=== PATIENT | female | born 1930 | race Caucasian/White ===

== ENCOUNTER 2018-07-29 14:28 | Observation (INO) | payer MEDICARE, OTHER ==
[~2018-07-29] VITALS: Ht 149.9 cm; Wt 68.3 kg
[2018-07-29 15:25] LABS: BASOPHILS % (AUTO) 0.2 % (0.0-5.0); EOSINOPHILS % (AUTO) 0.3 % (0.0-8.0); LYMPHOCYTES % (AUTO) 18.5 % (21.0-51.0); MEAN CORPUSCULAR HEMOGLOBIN 28.1 pg (27.0-33.0); MEAN CORPUSCULAR HGB CONC 32.3 g/dL (32.0-36.0); MONOCYTES % (AUTO) 7.9 % (3.0-13.0); NEUTROPHILS % (AUTO) 73.1 % (40.0-77.0); PLATELET COUNT (AUTO) 293 K/uL (130-400); RED BLOOD CELL COUNT(AUTO) 4.94 MIL/uL (4.00-5.50); WHITE BLOOD COUNT (AUTO) 10.8 K/uL (4.8-10.8)
[2018-07-29 15:36] LABS: CREATININE 1.3 mg/dL (0.5-1.5); POTASSIUM 3.8 mmol/L (3.5-5.1)
[2018-07-29 15:45] LABS: ALBUMIN 3.4 g/dL (3.5-5.0); BILIRUBIN,TOTAL 0.3 mg/dL (0.2-1.0); TOTAL PROTEIN, SERUM 7.6 g/dL (6.0-8.3)
[2018-07-29] MEDS ORDERED: GLUCAGON 1MG KIT 1 MG ML ONE (16:25)
[2018-07-29] MEDS ORDERED: SODIUM CHLORIDE 0.9% 1000ML 1,000 ML IV ONE ×2 (16:25→22:04)
[2018-07-29] MEDS ORDERED: ONDANSETRON HCL 4 MG/2 ML VIAL ONE (16:25)
[2018-07-29 16:58] LABS: APPEARANCE,URINE Clear (CLEAR); BILIRUBIN,URINE Negative (NEGATIVE); COLOR,URINE Yellow (YELLOW); GLUCOSE, URINE (UA) Negative (NEGATIVE); KETONES,URINE Negative (NEGATIVE); LEUKOCYTE ESTERASE ,URINE Small (NEGATIVE); NITRATE,URINE Negative (NEGATIVE); OCCULT BLOOD,URINE Negative (NEGATIVE); PH,URINE 5.5 (5.0-8.0); PROTEIN,URINE Negative (NEGATIVE); UROBILINOGEN,URINE 0.2 mg/dL (0.2-1.0)
[2018-07-29 17:13] LABS: RBC,URINE None Seen /HPF (0-1)
[2018-07-29 17:14] LABS: BACTERIA,URINE Few /HPF (None Seen); MUCUS,URINE Few LPF (None Seen); WBC,URINE 0-1 /HPF (0-1)
[2018-07-29] MEDS ORDERED: METOCLOPRAMIDE 10 MG/2 ML VIAL ONE (22:04)
[2018-07-29 23:15] VITALS: BP 154/86
[2018-07-30] VITALS (17 sets, daily range): BP systolic 113–158; BP diastolic 54–94
[2018-07-30] MEDS ORDERED: ACET-66 PO (01:28)
[2018-07-30] MEDS ORDERED: ATOR40TA69 PO (01:29)
[2018-07-30] MEDS ORDERED: CIPR-1 PO (01:33)
[2018-07-30] MEDS ORDERED: DOCU-116 PO (01:34)
[2018-07-30] MEDS ORDERED: FOLI1TAB15 PO (01:34)
[2018-07-30] MEDS ORDERED: FURO20TA4 PO (01:35)
[2018-07-30] MEDS ORDERED: IBUP-2077 PO (01:37)
[2018-07-30] MEDS ORDERED: LEVO75 PO (01:38)
[2018-07-30] MEDS ORDERED: LOSA50TA2 PO (01:40)
[2018-07-30] MEDS ORDERED: BENZ-39 PO (01:41)
[2018-07-30] MEDS ORDERED: CHOL200074 PO (01:45)
[2018-07-30] MEDS ORDERED: POTASSIUM CHLORIDE 10% ELIXIR 20 MEQ/15 ML UDCUP PO PRN (03:30)
[2018-07-30] MEDS ORDERED: CLONIDINE HCL 0.1 MG TABLET PO PRN (03:30)
[2018-07-30] MEDS ORDERED: DiphenhydrAMINE HCL 50 MG/ML VIAL IVP PRN (03:30)
[2018-07-30] MEDS ORDERED: POTASSIUM CHLORIDE 20MEQ/100ML 100 ML IV PRN (03:30)
[2018-07-30] MEDS ORDERED: DEXTROSE 50%-WATER 50 ML DISP.SYRIN IV PRN (03:30)
[2018-07-30] MEDS ORDERED: POTASSIUM CHLORIDE 20 MEQ ERTAB PO PRN (03:30)
[2018-07-30] MEDS ORDERED: NITROGLYCERIN 0.4 MG SL TAB SL PRN (03:30)
[2018-07-30] MEDS: METOCLOPRAMIDE 10 MG/2 ML VIAL IVP SCH ×2 (03:30→14:59)
[2018-07-30] MEDS ORDERED: GUAIFENESIN SUGAR-FREE 100 MG/5 ML UDCUP PO PRN (03:30)
[2018-07-30] MEDS ORDERED: MAG HYDROX/AL HYDROX/SIMETH ES 30 ML SUSP UDCUP PO PRN (03:30)
[2018-07-30] MEDS ORDERED: ZOLPIDEM TARTRATE 5 MG TAB PO PRN (03:30)
[2018-07-30] MEDS ORDERED: ONDANSETRON HCL MDV 20ML 2 MG/ML VIAL IVP PRN (03:30)
[2018-07-30] MEDS ORDERED: ACETAMINOPHEN 325 MG TAB PO PRN ×2 (03:30)
[2018-07-30] MEDS ORDERED: DIPHENHYDRAMINE HCL 25 MG CAPSULE PO PRN (03:30)
[2018-07-30] MEDS ORDERED: GUAIFENESIN-DM 200/20 MG 10 ML PO PRN (03:30)
[2018-07-30] MEDS ORDERED: LACTULOSE 20 GM/30 ML UDCUP PO PRN (03:30)
[2018-07-30] MEDS: SODIUM CHLORIDE 0.9% 1000ML 1,000 ML IV SCH ×3 (03:30→22:30)
[2018-07-30] MEDS ORDERED: LIDOCAINE HCL-MPF 1% 2ML VIAL IJ PRN (03:30)
[2018-07-30] MEDS ORDERED: GLUCAGON 1MG KIT 1 MG ML IM PRN (03:30)
[2018-07-30] MEDS: FAMOTIDINE/PF 20 MG/2 ML VIAL IV SCH (11:06)
[2018-07-30] MEDS: AMOXICILLIN/POTASSIUM CLAV 875-125 TABLET PO SCH ×2 (14:57→22:24)
[2018-07-30] MEDS ORDERED: ACETAMINOPHEN EXTRA STRENGTH 500 MG TABLET PO SCH (17:00)
[2018-07-30] MEDS ORDERED: BENZONATATE 100 MG CAPSULE PO PRN (17:00)
[2018-07-30] MEDS ORDERED: IBUPROFEN 800 MG TAB PO PRN (17:00)
[2018-07-30] MEDS ORDERED: DOCUSATE SODIUM 100 MG CAP PO PRN (17:00)
[2018-07-30] MEDS ORDERED: BISACODYL 10 MG SUPP.RECT RC PRN (17:30)
[2018-07-30] MEDS: CHOLECALCIFEROL 1000 UNIT PO SCH (20:23)
[2018-07-31] MEDS: SODIUM CHLORIDE 0.9% 1000ML 1,000 ML IV SCH (03:02)
[2018-07-31 03:26] VITALS: BP 147/59
[2018-07-31] MEDS: METOCLOPRAMIDE 10 MG/2 ML VIAL IVP SCH (03:38)
[2018-07-31 05:53] LABS: BASOPHILS % (AUTO) 0.6 % (0.0-5.0); EOSINOPHILS % (AUTO) 7.2 % (0.0-8.0); HEMATOCRIT 36.3 % (36-48); LYMPHOCYTES % (AUTO) 25.7 % (21.0-51.0); MEAN CORPUSCULAR HGB CONC 32.4 g/dL (32.0-36.0); MEAN CORPUSCULAR VOLUME 86.6 fL (79-99); MONOCYTES % (AUTO) 8.2 % (3.0-13.0); NEUTROPHILS % (AUTO) 58.3 % (40.0-77.0); NUCLEATED RED BLOOD CELLS 0.1 % (0.0-0.19); PLATELET COUNT (AUTO) 240 K/uL (130-400); RED CELL DISTRIBUTION WIDTH 16.1 % (11.0-15.5); WHITE BLOOD COUNT (AUTO) 8.6 K/uL (4.8-10.8)
[2018-07-31 06:10] LABS: ALBUMIN 2.7 g/dL (3.5-5.0); BILIRUBIN,TOTAL 0.3 mg/dL (0.2-1.0); CREATININE 1.2 mg/dL (0.5-1.5); TOTAL PROTEIN, SERUM 6.1 g/dL (6.0-8.3)
[2018-07-31] MEDS ORDERED: LEVOTHYROXINE 75 MCG TABLET PO SCH (06:30)
[2018-07-31 08:00] VITALS: BP 127/52
[2018-07-31] MEDS ORDERED: LOSARTAN 50 MG TABLET PO SCH (09:00)
[2018-07-31] MEDS ORDERED: ATORVASTATIN CALCIUM 40 MG TABLET PO SCH (09:00)
[2018-07-31] MEDS: CHOLECALCIFEROL 1000 UNIT PO SCH (09:00)
[2018-07-31] MEDS ORDERED: FOLIC ACID 1 MG TABLET PO SCH (09:00)
[2018-07-31] MEDS ORDERED: FUROSEMIDE 20 MG TABLET PO SCH (09:00)
[2018-07-31] MEDS ORDERED: LEVOFLOXACIN 500 MG TABLET PO SCH (09:00)
[2018-07-31] MEDS: AMOXICILLIN/POTASSIUM CLAV 875-125 TABLET PO SCH (09:28)
[2018-07-31] MEDS: FAMOTIDINE/PF 20 MG/2 ML VIAL IV SCH (09:30)
[2018-07-31 11:00] VITALS: BP 139/72
== END 2018-07-31 15:48 | disposition home or self-care (01) ==
LOC: EDH 14:28 → EDHIP 17:00 → 3DH 21:11 → 3CH 22:16
PROVIDERS: ADMIT Family Medicine; ATTEND Family Medicine
DX: T18.128A Food in esophagus causing other injury, initial encounter (principal); X58.XXXA Exposure to other specified factors, initial encounter; Y93.89 Activity, other specified; Y92.89 Other specified places as the place of occurrence of the external cause; Y99.8 Other external cause status; K22.4 Dyskinesia of esophagus; Z23 Encounter for immunization; Z79.899 Other long term (current) drug therapy
CPT/HCPCS: 36415 ×2; 43245; 43247; 71045; 80053 ×2; 81001; 82948 ×3; 84484; 85025 ×2; 93005; 96374; 96375; 96376; 99285; G0008; G0378 ×47; J1610; J2405; J2765 ×3; J3490 ×2; J7030 ×3; Q2038

== ENCOUNTER → 2018-08-22 | Outpatient (CLI) | payer OTHER ==
[~2018-08-22] MED LIST: ACET-66 PO; ATOR40TA69 PO; BENZ-39 PO; CHOL200074 PO; CIPR-1 PO; DOCU-116 PO; FOLI1TAB15 PO; FURO20TA4 PO; IBUP-2077 PO; LEVO75 PO; LOSA50TA2 PO
== END | disposition home or self-care (01) ==
LOC: OIH 16:35
PROVIDERS: ATTEND Family Medicine
DX: M25.511 Pain in right shoulder (principal)
CPT/HCPCS: 73030

== ENCOUNTER 2018-10-25 07:33 | Day surgery (SDC) | payer OTHER ==
[~2018-10-25] VITALS: Ht 152.4 cm; Wt 56.7 kg
[~2018-10-25 07:33] MED LIST changes: -CIPR-1 PO; +OMEP40CA37 PO; +SODIUM CHLORIDE 0.9% 1000ML 1,000 ML IV ONE; +TRAM50TA4 PO
[2018-10-25 08:11] VITALS: BP 189/109
[2018-10-25] MEDS ORDERED: PROPOFOL 10 MG/ML 20ML VIAL IV ONE (08:55)
[2018-10-25 09:07] VITALS: BP 141/105
[2018-10-25 09:12] VITALS: BP 126/83
[2018-10-25 09:17] VITALS: BP 152/60
== END 2018-10-25 09:50 | disposition home or self-care (01) ==
LOC: DAH 07:33 → ENDO 07:33
PROVIDERS: ATTEND Internal Medicine
DX: K22.2 Esophageal obstruction (principal); K31.89 Other diseases of stomach and duodenum; K22.70 Barrett's esophagus without dysplasia; E78.5 Hyperlipidemia, unspecified; M19.90 Unspecified osteoarthritis, unspecified site; I10 Essential (primary) hypertension; E03.9 Hypothyroidism, unspecified; Z90.710 Acquired absence of both cervix and uterus; Z79.899 Other long term (current) drug therapy; K21.0 Gastro-esophageal reflux disease with esophagitis; I48.91 Unspecified atrial fibrillation; I21.3 ST elevation (STEMI) myocardial infarction of unspecified site
CPT/HCPCS: 43239; 43249; 88305; 88312; 93005; A4606; C1726; J2704; J7030

== ENCOUNTER 2020-07-14 03:08 | Emergency (ER) | payer OTHER ==
[~2020-07-14 03:08] MED LIST changes: +OMEP40CA13 PO; -OMEP40CA37 PO; -SODIUM CHLORIDE 0.9% 1000ML 1,000 ML IV ONE
[2020-07-14] MEDS ORDERED: LIDOCAINE HCL 1% 20 ML VIAL ONE (03:24)
== END 2020-07-14 05:52 | disposition home or self-care (01) ==
LOC: EDH 03:08
DX: S81.812A Laceration without foreign body, left lower leg, initial encounter (principal); I10 Essential (primary) hypertension; E07.9 Disorder of thyroid, unspecified; W01.198A Fall on same level from slipping, tripping and stumbling with subsequent striking against other object, initial encounter; Y93.89 Activity, other specified; Y92.098 Other place in other non-institutional residence as the place of occurrence of the external cause; Y99.8 Other external cause status
CPT/HCPCS: 12002; 99282